=== PATIENT | male | born 1940 | race Caucasian/White ===

== ENCOUNTER 2017-07-06 12:28 | Emergency (ER) | payer MEDICARE ==
[~2017-07-06] VITALS: Ht 175.3 cm; Wt 83.9 kg
[2017-07-06] MEDS ORDERED: GLIMEPIRIDE4 MG (13:01)
[2017-07-06] MEDS ORDERED: FISH OIL 1,0001 EAC2 PO (13:02)
[2017-07-06] MEDS ORDERED: WARFARIN SODIUM5 MG PO (13:02)
[2017-07-06] MEDS ORDERED: BAYER CHEWABLE81 MG PO (13:02)
[2017-07-06] MEDS ORDERED: NORCO 5-325 TA1 EACH PO (13:35)
[2017-07-06] MEDS ORDERED: BACLOFEN10 MG PO (13:35)
[2017-07-06] MEDS ORDERED: METHYLPREDNISOLO4 M1 PO (13:35)
== END 2017-07-06 14:06 | disposition home or self-care (01) ==
LOC: ED 12:28
DX: M62.838 Other muscle spasm (principal); I10 Essential (primary) hypertension; E11.9 Type 2 diabetes mellitus without complications; Z87.891 Personal history of nicotine dependence; Z79.899 Other long term (current) drug therapy; Z79.82 Long term (current) use of aspirin
CPT/HCPCS: 96374; 96375; 99283; J1100; J2060

== ENCOUNTER 2017-09-01 14:32 | Emergency (ER) | payer MEDICARE ==
[~2017-09-01] VITALS: Ht 175.3 cm; Wt 81.7 kg
[~2017-09-01 14:32] MED LIST: BACLOFEN10 MG PO; BAYER CHEWABLE81 MG PO; FISH OIL 1,0001 EAC2 PO; GLIMEPIRIDE4 MG; METHYLPREDNISOLO4 M1 PO; NORCO 5-325 TA1 EACH PO; WARFARIN SODIUM5 MG PO
[2017-09-01] MEDS ORDERED: GUAIFEN-CODEINE10 ML PO (16:46)
[2017-09-01] MEDS ORDERED: TAMIFLU75 MG PO (16:46)
--- NOTE | 2017-09-01 18:21 | EKG ---
[facility] [address] [facility] [place] [address] Signed Sinus rhythm with 1st degree AV block Possible Anterior infarct , age undetermined Abnormal ECG No previous ECGs available Confirmed by YAS VELÁSQUEZ MD ([id number]) on 09/01/2017 6:21:46 PM Electronically Signed By: YAS VELÁSQUEZ MD 09/01/17 182 PATIENT NAME: KAYYYANIRA NATTY Electrocardiogram DATE OF : 36 PHYSICIAN: YAS VELÁSQUEZ MD REPORT #: [id number] REPORT IS CONFIDENTIAL AND NOT TO BE RELEASED WITHOUT AUTHORIZATION
== END 2017-09-01 17:10 | disposition home or self-care (01) ==
LOC: ED 14:32
DX: J10.1 Influenza due to other identified influenza virus with other respiratory manifestations (principal); E11.9 Type 2 diabetes mellitus without complications; Z87.891 Personal history of nicotine dependence; Z98.890 Other specified postprocedural states; Z79.4 Long term (current) use of insulin; Z79.01 Long term (current) use of anticoagulants; Z79.899 Other long term (current) drug therapy
CPT/HCPCS: 71045; 80053; 83605; 84484; 85025; 87502; 93005; 93010; 94640; 96361; 96374; 99283; J2405; J7030

== ENCOUNTER 2020-04-01 17:03 | Observation (INO) | payer OTHER ==
[~2020-04-01] VITALS: Ht 175.3 cm; Wt 82.4 kg
[~2020-04-01 17:03] MED LIST changes: +GUAIFEN-CODEINE10 ML PO; +TAMIFLU75 MG PO
[2020-04-01] MEDS ORDERED: AMOXICILLIN500 MG (17:25)
[2020-04-01] MEDS ORDERED: GLUCOPHAGE500 MG PO (17:58)
[2020-04-01] MEDS ORDERED: ZESTRIL40 MG PO (18:01)
--- NOTE | 2020-04-01 21:04 | NUR ---
PT ARRIVED TO ROOM 114 FROM ED, A/O, SELF TRANSFERED WITH SL UNSTEADINESS. RT FOOT RED TO MID BHAT, PAINFUL TO WALK ON. FEMALE FRIEND PRESENT WELL. PT HAS NOT "TAKEN ANY MEDICATION" SINCE Monday03-27-20. HE WAS DRIVING FROM [place], CAR BROKE DOWN, HAD TO CATCH A BUS TO COME SEE HIS SON, AND ALL HIS BELONGINGS WERE LEFT IN THE CAR. HIS SON WORKS AT "[employer]". EDUCATED BOAT LABORER LIGHT, URINAL PLACED CLOSE, PT AWARE TO USE CALL LIGHT FOR ASSISTANCE. PLAN TO GET PT SOMETHING TO EAT AND DRINK.
--- NOTE | 2020-04-01 21:05 | NUR ---
PT ARRIVED FROM ED, SBA PT IN TO BED FROM ED BED, GOT PT A WARM BLANKET, HAD TO LEAVE TO ASST ANOTHER PT IN 112
--- NOTE | 2020-04-01 21:47 | NUR ---
BLOOD SUGAR DONE AND CHARTED. BEDSIDE TABLE AND CALL LIGHT IN REACH. PT NEEDS NOTHING MORE AT THIS TIME.
--- NOTE | 2020-04-01 22:15 | NUR ---
scheduled med provided. no other needs at this time. call light in reach.
--- NOTE | 2020-04-01 22:34 | NUR ---
GOT PT SET UP WITH A SANDWHICH, GAVE PT A WET WIPE TO CLEAN HAND, NOTHING FUTHER REQUESTED
--- NOTE | 2020-04-02 | NUR ---
PT RESTING IN BED, EYES CLOSED. RR EVEN, UNLABORED. CALL LIGHT IN REACH.
--- NOTE | 2020-04-02 02:14 | NUR ---
VITALS AND I&OS DONE AND CHARTED. FRESH ICE WATER GIVEN. BEDSIDE TABLE AND CALL LIGHT IN REACH.
--- NOTE | 2020-04-02 02:24 | NUR ---
ASSESSMENT COMPLETED. 3+ RLE EDEMA AND REDNESS UNCHANGED. 2+ LLE EDEMA AND REDNESS UNCHANGED. PAIN IN BLE 6/10, PRN TYLENOL PROVIDED. LOWER LEGS ELEVATED, ICE PACK PROVIDED. LUNGS CLEAR. BOWEL TONES ACTIVE, ABD SOFT, NONTENDER. NUMBNESS AND TINGLING REPORTED IN RIGHT FOOT, PULSE INTACT. CMS INTACT IN OTHER 3 EXTREMITIES. GCS 15, A&O X4. NO OTHER NEEDS AT THIS TIME. CALL LIGHT IN REACH.
--- NOTE | 2020-04-02 04:00 | NUR ---
PT RESTING IN BED, EYES CLOSED. RR EVEN, UNLABORED. CALL LIGHT IN REACH.
--- NOTE | 2020-04-02 06:10 | NUR ---
scheduled med provided. heel protectors provided. no other needs at this time. call light in reach.
--- NOTE | 2020-04-02 06:40 | NUR ---
VITALS AND I&OS DONE AND CHARTED. GARBAGES EMPTIED. BEDSIDE TABLE AND CALL LIGHT IN REACH. FRESH ICE WATER GIVEN. PT NEEDS NOTHING MORE AT THIS TIME.
--- NOTE | 2020-04-02 07:25 | NUR ---
0655: Pt resting in his bed with his feet elevated and with no complaints at this time, call castro within reach.
--- NOTE | 2020-04-02 08:00 | NUR ---
SPOKE WITH PATIENT IN ROOM. PATIENT IS SITTING UPRIGHT IN BED EATING BREAKFAST ON OWN. PATIENT IS ORIENTED, LITTLE HOULTON. PATIENT STATES HE LIVES IN [place]. HE HAS FAMILY HERE. A SON AND HIS MOTHER LIVES HERE. HE STATES HIS SON BECAME VERY SICK AND HE COULDN'T GET AHOLD OF ANYONE SO HE THREW SOME CLOTHES, HIS WALKER AND CANE INTO HIS CAR AND DROVE HERE. HIS CAR BROKE DOWN IN [place]. HE HAD TO PAY ALMOST ALL THE WICK HE WITHDREW FOR THE CAR REPAIRS. HE STATES HE WAS LEFT WITH LESS THAN $100 WHEN HE GOT HERE. HE STATES HE ONLY HAS SOCIAL SECURITY AND HAS TO WAIT ABOUT 3 WEEKS TO GET MORE MONEY. HE STATES HE IS STAYING WITH THE MOTHER OF HIS SON, DEBORA. THERE IS 3 STEPS IN AND ONE LEVEL AFTER THAT. HE IS USING HIS CANE. HIS WALKER IS IN [place] WITH HIS CAR. HE RENTED A CAR TO GET THE REST OF THE WAY. WE DISCUSSED HIS FRIEND MAY BE ABLE TO BORROW A WALKER AT [facility], I GAVE HIM THAT CONTACT INFORMATION. HE PLANS ON DISCHARGING BACK TO HER PLACE. HE IS A . HE FEELS SAFE TO RETURN THERE AT DISCHARGE. CM WILL FOLLOW NEEDED.
--- NOTE | 2020-04-02 08:13 | NUR ---
PT RESTING IN HIS BED WITH HIS FEET ELEVATED. HE DENIES ANY NUMBNESS OR TINGLING. +2 BILAT LOWER LEG EDEMA WITH +1 PEDAL PULSES NOTED. THE RIGHT THIRD TOE AMPUTATION SITE REMAINS OPEN TO AIR WITH A SCANT AMOUNT OF OLD DRY DRAINAGED NOTED AND HEEL PROTECTORS IN PLACE. SOME SLIGHT REDNESS NOTED WHICH THE PT STATES IS LESS THAN IT WAS. PT DENIES ANY PAIN AT THIS TIME, WILL CONTINUE TO MONITOR.
--- NOTE | 2020-04-02 08:17 | NUR ---
MESSAGE LEFT AT DR. WHITT'S OFFICE FOR CONSULT ON PATIENT.
--- NOTE | 2020-04-02 09:33 | NUR ---
Pt resting in his bed with his feet elevated and no complaints or needs at this time.
--- NOTE | 2020-04-02 11:54 | NUR ---
Pt speaking with his visitor and eating lunch. Call castro within reach.
--- NOTE | 2020-04-02 12:36 | NUR ---
MED REC COMPLETE
--- NOTE | 2020-04-02 14:17 | NUR ---
PT CONTINUES TO DENIE ANY PAIN OR PROBLEMS AND STATES THAT HIS LEGS LOOK MUCH BETTER. SEE ASSESSMENT.
--- NOTE | 2020-04-02 17:31 | NUR ---
DR WHITT TO THE BEDSIDE TO ASSESS THE PT AT THIS TIME.
--- NOTE | 2020-04-02 18:21 | NUR ---
DRESSING PLACED ON THE PT'S RIGHT FOOT BY DR WHITT.
--- NOTE | 2020-04-02 19:20 | NUR ---
Pt complains of 10/[address] Judd called and notified and states he will put in additional orders. Report given to Charlene SOUSA.
--- NOTE | 2020-04-02 19:45 | NUR ---
PT PAIN 10/10, PRN PAIN MED PROVIDED. RLE ELEVATED, ICE PACK PROVIDED. ICE WATER PROVIDED. NO OTHER NEEDS AT THIS TIME. CALL LIGHT IN REACH.
--- NOTE | 2020-04-02 19:58 | NUR ---
VITALS DONE AND CHARTED. FRESH ICE WATER GIVEN. BEDSIDE TABLE AND CALL LIGHT IN REACH. I&OS WILL BE DONE LATER. PT NEEDS NOTHING MORE AT THIS TIME.
--- NOTE | 2020-04-02 21:31 | NUR ---
ASSESSMENT COMPLETED. IV WNL, CDI, FLUSHED WELL. SCHEDULED MEDICATIONS PROVIDED. RLE 2+ EDEMA, REDNESS AND 6/10 PAIN, ICE PACK PROVIDED, LEG ELEVATED. LLE TRACE EDEMA. HEART TONES REGULAR. LUNGS CLEAR. BOWEL TONES ACTIVE, ABD SOFT, NONTENDER. NUMBNESS AND TINGLING IN RLE, PULSE INTACT. CMS INTACT IN 3 OTHER EXTREMITIES. GCS 15, A&O X4. IV MEDS INFUSING PER ORDER. NO OTHER NEEDS AT THIS TIME. CALL LIGHT IN REACH.
--- NOTE | 2020-04-02 22:42 | EKG ---
[facility] [address] [facility] [place] [address] Signed Atrial fibrillation with frequent ventricular-paced complexes Left axis deviation Incomplete left bundle branch block ST \T\ T wave abnormality, consider lateral ischemia Abnormal ECG When compared with ECG of 01-SEP-2017 15:39, Electronic ventricular pacemaker has replaced Sinus rhythm Confirmed by YAS VELÁSQUEZ MD ([id number]) on 04/02/2020 10:41:52 PM Electronically Signed By: YAS VELÁSQUEZ MD 04/02/20 2242 PATIENT NAME: YANIRA SULTANA Electrocardiogram DATE OF : 36 PHYSICIAN: YAS VELÁSQUEZ MD REPORT #: [id number] REPORT IS CONFIDENTIAL AND NOT TO BE RELEASED WITHOUT AUTHORIZATION
--- NOTE | 2020-04-02 22:52 | NUR ---
PT REPORTS RLE PAIN "SHOOTING" AT 10/10. PRN PAIN MED PROVIDED. PT STATES IT IS "THE WORST PAIN OF MY LIFE". RLE ELEVATED, ICE PACK PROVIDED. NO OTHER NEEDS AT THIS TIME. CALL LIGHT IN REACH.
--- NOTE | 2020-04-02 22:57 | PATH ---
[facility] [address] [facility] [place], [place] [address] Signed ORDERING PHYSICIAN: Zack Pino MD PATIENT NAME: YANIRA SULTANA GENDER: [place] : 1940 SPECIMEN(S): No Source Given MOLECULAR PATHOLOGY RESULTS: SARS-CoV-2 Not Detected ADDITIONAL NOTES.: The [employer] Fusion SARS-CoV-2 Assay is a multiplex real-time PCR (RT-PCR) in vitro diagnostic test intended for the qualitative detection of RNA from SARS-CoV-2 from individuals who meet COVID-19 clinical and/or epidemiological criteria. In general, SARS-CoV-2 RNA can be detected during the acute phase of infection. Positive results indicate the presence of SARS-CoV-2 RNA. Clinical correlation with patient history and other diagnostic information is necessary to determine patient infection status. Positive results do not rule out bacterial infection or co-infection with other viruses. Negative results do not preclude SARS-CoV-2 infection and should not be used as the sole basis for patient management decisions. Negative results must be combined with other clinical observations, patient history, and epidemiological information. The Cab[employer] Fusion SARS-CoV-2 Assay is not yet approved or cleared by the [place] FDA. When there are no FDA-approved or cleared tests available, and other criteria are met, FDA can make tests available under an emergency access mechanism called an Emergency Use Authorization (EUA). The EUA for this test is supported by the Environmental Engineering Professor of Health and Human Service's (HHS's) declaration that circumstances exist to justify the emergency use of in vitro diagnostics for the detection and/or diagnosis of the virus that causes COVID-19. This EUA will remain in effect for the duration of the COVID-19 declaration justifying emergency of IVDs, unless it is terminated or revoked by FDA, after which the test may no longer be used. The Cabery Fusion SARS-CoV-2 Assay is for use only under EUA in US laboratories certified under the Clinical Laboratory Improvement Amendments of 1988 (CLIA) to perform high complexity tests. [employer] is certified under CLIA to perform high complexity PATIENT NAME: YANIRA SULTANA PATHOLOGY DATE OF : 36 REPORT #: [id number] PHYSICIAN: KYAW CAMPBELL PCP: OTHER PCP REPORT IS CONFIDENTIAL AND NOT TO BE RELEASED WITHOUT AUTHORIZATION [address] [address] Signed clinical laboratory testing. PERFORMING LABORATORY.: Molecular testing was performed by [facility] [facility] [address] [place], [place] [address] [address] (Potato Seed Cutter: Dev Petersen D.O.; CLIA#: [id number]) Diagnostician: System Interface Pathologist Electronically Signed 04/02/2020 Copies: ~ PATIENT NAME: YANIRA SULTANA PATHOLOGY DATE OF : 36 REPORT #: [id number] PHYSICIAN: KYAW CAMPBELL PCP: OTHER PCP REPORT IS CONFIDENTIAL AND NOT TO BE RELEASED WITHOUT AUTHORIZATION
--- NOTE | 2020-04-02 23:07 | NUR ---
NOTIFIED MD OF PATIENT'S SEVERE PAIN IN RLE THAT CONTINUES AFTER ORDERED PRN PAIN MEDS. TELEPHONE ORDER PROVIDED OF 2MG MORPHINE IV ONCE, MAY REPEAT 2 MG IV MORPHINE ONCE IN 30 MINUTES IF SEVERE PAIN IS NOT RELIEVED WITH INITIAL DOSE. ORDER REPEATED BACK.
--- NOTE | 2020-04-02 23:24 | NUR ---
PT PAIN 10/10, SHOOTING. PAIN MED PROVIDED PER ORDER. IV WNL, FLUSHED WELL. NO OTHER NEEDS AT THIS TIME. CALL LIGHT IN REACH.
--- NOTE | 2020-04-03 00:08 | NUR ---
RLE PAIN 05/16, "SHOOTING". PRN PAIN MED PROVIDED. NO OTHER NEEDS AT THIS TIME. CALL LIGHT IN REACH.
--- NOTE | 2020-04-03 00:34 | NUR ---
PT RESTING IN BED, EYES CLOSED. RR EVEN, UNLABORED. CALL LIGHT INREACH.
--- NOTE | 2020-04-03 04:06 | NUR ---
PT RESTING IN BED, EYES CLOSED. RR EVEN, UNLABORED. CALL LIGHT IN REACH.
--- NOTE | 2020-04-03 06:10 | NUR ---
VITALS AND I&OS DONE AND CHARTED. GARBAGES EMPTIED. FRESH ICE WATER AND COFFEE GIVEN. HELPED PT UP TO THE CHAIR WITH HIS CANE. BEDSIDE TABLE AND CALL LIGHT IN REACH. PT NEEDS NOTHING MORE AT THIS TIME.
--- NOTE | 2020-04-03 06:23 | NUR ---
ASSESSMENT COMPLETED. SCHEDULED MED PROVIDED. GCS 15, A&O X4. PAIN RLE 2/10, PRN PAIN MEDS PROVIDED. RLE EDEMA, REDNESS UNCHANGED. CMS INTACT X4 EXTREMITIES. LUNGS CLEAR. BOWEL TONES ACTIVE, ABD SOFT, NONTENDER. COFFEE AND ICE WATER, VS AND I&O COMPLETED BT INTERVENTIONAL RADIOLOGIST NOVEMBER AND INTERVENTIONAL RADIOLOGIST . PT UP TO CHAIR, 1 PA WITH CANE AND ADAPTIVE SHOE, TOLERATED WELL. NO OTHER NEEDS AT THIS TIME. CALL LIGHT IN REACH.
--- NOTE | 2020-04-03 07:23 | NUR ---
0708: Pt resting in his chair with his call castro within reach. Pt states his pain is now a 1/10 which is well controled.
[2020-04-03] MEDS ORDERED: OXYCODONE HCL5 MG PO (08:52)
[2020-04-03] MEDS ORDERED: DOXYCYCLINE MO100 M1 PO (08:52)
--- NOTE | 2020-04-03 08:55 | NUR ---
PT RESTING IN HIS CHAIR AND WAS JUST SEEN BY DR VELÁSQUEZ AND THEY ARE PLANNING A DC TODAY. PT DENIES ANY PAIN OR NEW PROBLEMS AT THIS TIME. SEE ASSESSMENT.
--- NOTE | 2020-04-03 10:08 | NUR ---
Pt dressed and is ready for discharge but has been unable to reach his ride home. Pt awaiting his ride at this time.
--- NOTE | 2020-04-03 10:20 | NUR ---
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 PATIENT REQUESTING A WELFARE CHECK ON HIS "" HE IS UNABLE TO REACH HER TO PICK HIM UP UPON D/C THIS [place]. PATIENT HAS ALSO BEEN UNABLE TO REACH HIS SON, HE WORKS NIGHTS AT [employer]. DISPATCHER ASSURED PATIENT SHE WOULD CALL HIM BACK. VITALS AND I&OS CHARTED. IV REMOVED. CALL LIGHT IN REACH
[2020-04-04] MEDS ORDERED: CIPROFLOXACIN500 MG PO (11:32)
== END 2020-04-03 10:40 | disposition home or self-care (01) ==
LOC: ED 17:03 → MS 17:05
PROVIDERS: ADMIT Internal Medicine
DX: L08.9 Local infection of the skin and subcutaneous tissue, unspecified (principal); E11.9 Type 2 diabetes mellitus without complications; I10 Essential (primary) hypertension; I48.0 Paroxysmal atrial fibrillation; E78.5 Hyperlipidemia, unspecified; Z87.891 Personal history of nicotine dependence; Z79.899 Other long term (current) drug therapy; Z79.01 Long term (current) use of anticoagulants; Z79.84 Long term (current) use of oral hypoglycemic drugs
CPT/HCPCS: 73630; 80053; 83036; 83880; 85025; 85610; 85651; 93005; 93010; 96365; 96366; 96367; 96372; 96375; 96376; 99284-25; C9803; G0378; J0696; J1650; J2270; U0003